=== PATIENT | female | born 1995 | race Hispanic/Latino ===

== ENCOUNTER → 2018-03-25 19:25 | Outpatient (CLI) | payer OTHER, SELFPAY | PROVIDERS: Visit Provider Physician Assistant | DX: N39.0 Urinary tract infection, site not specified (principal) | CPT/HCPCS: 87077; 87086; 87186 ==

== ENCOUNTER 2020-01-12 14:49 | Emergency (ER) | payer OTHER, SELFPAY ==
[2020-01-12 14:53] VITALS: BP 130/74; PULSE 62; RESP 16; TEMP 36.1; O2SAT 99; BMI 35.5
[2020-01-12 17:42] VITALS: BP 121/69
[2020-01-12 17:43] VITALS: PULSE 64; O2SAT 99
[2020-01-12 18:00] VITALS: BP 116/75; PULSE 64; O2SAT 99
--- NOTE | 2020-01-12 18:21 | ED.CHESTPAIN ---
HPI - Chest Pain <CANDACE Tejada - Last Filed: 01/12/20 22:43> General Chief Complaint: Chest Pain Stated Complaint: sent for CT Time Seen by Provider: 01/12/20 18:03 Source: patient Mode of arrival: Ambulatory Limitations: no limitations History of Present Illness HPI narrative: This is a 24 year female, nonsmoker, who is currently is under care of Dr. Wallace (wind development director) for bradycardia with short of breath during , presents to ED with central chest pain with with breathing which started last night at 10 pm with short of breath. She also had an episode of near-syncope 4 days ago. Patient reports pain is constant without radiation. Patient reports pain feels improved when she sits up and leaning forward. She reports pain is locating deep inside and not reproducible. She does carry her 4-month-old daughter frequently. Patient had sudden onset of lightheadedness and near-syncope 4 days ago when she was about to eat. She became anxious and hyperventilated with tingling in her arms and face. She was checked out by EMS at home but was not transported to hospital at that time with normal vital signs and heart rhythm. Patient is currently wearing heart monitor but not during near-syncope. Patient called Dr. Wallace and seen at the office and was recommended to go to ED for lab test and CT test for her symptoms. Patient denies fever, chills, nausea or vomiting, recent URI symptoms. Patient has echocardiogram scheduled on 01/21/20 and had EKG done today at the office. Patient 4 month and she had phlebitis from IV site 3 weeks after she delivered and was noted at that time she had heart rate in 40s with short of breath. Related Data Allergies Allergy/AdvReac Type Severity Reaction Status Date / Time ibuprofen [From Advil] Allergy Severe thraot Verified 03/25/18 19:22 swelling and red lines on chin Review of Systems <CANDACE Tejada - Last Filed: 01/12/20 22:43> Review of Systems Narrative: General: Denies fever, chills, fatigue, malaise, sweats. HEENT: Denies sinus pain, ear pain, sore throat, difficulty swallowing, dizziness. Respiratory: See HPI Cardiovascular: See HPI Gastrointestinal: Denies nausea, vomiting, abdominal pain, diarrhea, constipation, melena. : Denies dysuria, frequency, incontinence, hematuria, urinary retention. Musculoskeletal: Denies weakness, joint pain or bony pain. Skin: Denies rash, skin lesions, or other. Neurologic: Denies weakness, headache, numbness, change in speech, confusion, seizures, incoordination. Psychiatric: No concerning psychosocial issues. 12-point review of systems is negative except for those stated above. Patient History <CANDACE Tejada - Last Filed: 01/12/20 22:43> Medical History Bradycardia (Acute) Phlebitis (Acute) Social History Smoking Status: Never smoker Smoking Status: Never smoker alcohol intake frequency: 0-2 drinks per day Substance Use Type: does not use Exam <CANDACE Tejada - Last Filed: 01/12/20 22:43> Narrative Exam Narrative: GEN: Alert, oriented x 3, well appearing and nourished, and in no acute distress. Head: Normal cephalic, atraumatic. No scalp or temporal tenderness, palpable mass or rash. EYES: Pupils are equal, round, and reactive to light and accommodation. Extraocular muscles are intact bilaterally. There is no subconjunctival hemorrhage, exudate and sclera non-icteric. ENT: Hearing grossly intact. Airway patent. Neck: Trachea in midline. No JVD, non-tender without lymphadenopathy. No masses or thyroid megaly. Supple, non-tender and no meningeal signs. CARDIAC: Normal regular rate and rhythm without murmurs, gallops, or rubs. No chest wall tenderness. No peripheral edema, cyanosis or pallor. Capillary refill is less than 2 seconds. RESPIRATORY: Lungs are clear to auscultate bilaterally. No cough, wheezes, rales, or rhonchi. No stridor, respiratory distress, increase work of breathing, or accessary muscle used. ABD: Abdomen soft, nontender and non-distended. No guarding or rebound tenderness to palpate. Bowel sounds are normal in all 4 quadrants. There is no palpable masses or organomegaly. EXT: Full painless ROM of all extremities with no loss of sensation, strength, effusion or edema. SKIN: Warm, dry, normal color for patient. No erythema, lesions or rash over visible areas. BACK: Nontender without deformity or crepitance. No flank tenderness. NEUROLOGICAL: Alert and oriented to place, time and person. Sensation and motor function intact bilaterally. No facial droops, dysphasia. PSYCHIATRIC: Good judgement and reason, without hallucinations, abnormal affect or abnormal behaviors during the examination. Patient is not suicidal. Initial Vital Signs Initial Vital Signs: Vital Signs Temperature 97.0 F L 01/12/20 14:53 Pulse Rate 62 01/12/20 14:53 Respiratory Rate 16 01/12/20 14:53 Blood Pressure 130/74 01/12/20 14:53 Pulse Oximetry 99 01/12/20 14:53 <Marcus Wheeler DO - Last Filed: 01/13/20 01:18> Initial Vital Signs Initial Vital Signs: Vital Signs Temperature 97.0 F L 01/12/20 14:53 Pulse Rate 62 01/12/20 14:53 Respiratory Rate 16 01/12/20 14:53 Blood Pressure 130/74 01/12/20 14:53 Pulse Oximetry 99 01/12/20 14:53 Scores <CANDACE Tejada - Last Filed: 01/12/20 22:43> GCS Vazquez coma scale eye opening: Spontaneous [place] coma scale verbal response: Orientated [place] coma scale motor response: Obey commands [place] coma scale total score: 15 HEART Score Heart Score history: Slightly Suspicious Heart Score EKG: Normal Heart Score Age: < 45 years old Heart Score risk factors: 1-2 risk factors Heart Score troponin: < or = to normal limit Heart Score Total: 1 Wells' Criteria for PE Clinical signs and symptoms of DVT: No PE is #1 Dx or equally likely: Yes Heart rate > 100: No Immobilization at least 3 days or surg in previous 4 weeks: No History of PE or DVT: No Hemoptysis: No Malignancy w/Treatment within 6 months or palliative: No Wells' PE Score total: 3 Course <CANDACE Tejada - Last Filed: 01/12/20 22:43> Orders Ordered: ED Orders 01/12/20 18:20 XR chest 1V Stat EKG-12 Lead Stat 01/12/20 18:30 Complete Blood Count AUTO DIFF Stat Comprehensive Metabolic Panel Stat D Dimer Stat Lipase Stat NT-proBNP (BNP-Adult 18+) Stat Partial Thromboplastin Time Stat Prothrombin Time INR Stat Troponin & CK Cardiac Panel Stat 01/12/20 19:34 CT angio chest PE protocol Stat Discontinued Medications Acetaminophen (Tylenol) 650 mg PO NOW ONE Stop: 01/12/20 20:16 Last Admin: 01/12/20 20:21 Dose: 650 mg Documented by: OBI Aspirin (Aspirin Chew) 324 mg PO NOW ONE Stop: 01/12/20 18:20 Last Admin: 01/12/20 18:38 Dose: 324 mg Documented by: OBI Ketorolac Tromethamine (Toradol) 15 mg IV NOW ONE Stop: 01/12/20 20:16 Last Admin: 01/12/20 20:21 Dose: 15 mg Documented by: OBI Vital Signs Vital signs: Vital Signs - 8 hr 01/12/20 17:42 01/12/20 17:43 01/12/20 18:00 Pulse Rate 64 64 Blood Pressure 121/69 116/75 Pulse Oximetry 99 99 01/12/20 20:31 Pulse Rate 63 Blood Pressure 118/80 Pulse Oximetry 97 <Marcus Wheeler, - Last Filed: 01/13/20 01:18> Orders Ordered: ED Orders 01/12/20 18:20 XR chest 1V Stat EKG-12 Lead Stat 01/12/20 18:30 Complete Blood Count AUTO DIFF Stat Comprehensive Metabolic Panel Stat D Dimer Stat Lipase Stat NT-proBNP (BNP-Adult 18+) Stat Partial Thromboplastin Time Stat Prothrombin Time INR Stat Troponin & CK Cardiac Panel Stat 01/12/20 19:34 CT angio chest PE protocol Stat Discontinued Medications Acetaminophen (Tylenol) 650 mg PO NOW ONE Stop: 01/12/20 20:16 Last Admin: 01/12/20 20:21 Dose: 650 mg Documented by: OBI Aspirin (Aspirin Chew) 324 mg PO NOW ONE Stop: 01/12/20 18:20 Last Admin: 01/12/20 18:38 Dose: 324 mg Documented by: OBI Ketorolac Tromethamine (Toradol) 15 mg IV NOW ONE Stop: 01/12/20 20:16 Last Admin: 01/12/20 20:21 Dose: 15 mg Documented by: OBI Vital Signs Vital signs: Vital Signs - 8 hr 01/12/20 17:42 01/12/20 17:43 01/12/20 18:00 Pulse Rate 64 64 Blood Pressure 121/69 116/75 Pulse Oximetry 99 99 01/12/20 20:31 Pulse Rate 63 Blood Pressure 118/80 Pulse Oximetry 97 MDM - Chest Pain <Siva Sally [employer]PER[employer] - Last Filed: 01/12/20 22:43> Differential Diagnosis Differential diagnosis: Likely pneumothorax, atypical chest pain, st elevation myocardial infarction, costochondritis and other (PE, pericarditis, pleural effusion) Medical Records Data Attestation: I reviewed the patient's medical records. Lab Data Attestation: I reviewed the patient's lab results. Result diagrams: 01/12/20 18:30 01/12/20 18:30 Labs: Lab Results 01/12/20 01/12/20 01/12/20 Range/Units 18:30 18:30 18:30 WBC 8.5 (4.5-11.0) X10^3/uL RBC 5.10 (4.0-5.2) X10^6/uL Hgb 14.4 (12.0-16.0) g/dL Hct 42.6 (36-46) % MCV 83.6 (80-100) fL MCH 28.3 (26-34) PG MCHC 33.8 (30-36) % RDW 13.4 (11.6-14.8) % Plt Count 265 (150-400) X10^3/uL Neut % (Auto) 63.0 (50-75) % Lymph % (Auto) 30.3 (25-40) % [place] % (Auto) 4.8 (3-14) % Eos % (Auto) 1.5 L (2-4) % Baso % (Auto) 0.4 (0-2) % Neut # (Auto) 5300 (9004-6506) /uL Lymph # (Auto) 2600 (5560-8634) /uL [place] # (Auto) 400 (0-900) /uL Eos # (Auto) 100 (0-450) /uL Baso # (Auto) 0 (0-100) /uL PT 10.8 (10.1-12.7) SECONDS INR 0.9 (0.9-1.3) APTT 36 (26.4-36.2) SECONDS D-Dimer < 200 (<230) ng/mL Sodium (137-145) mmol/L Potassium (3.4-5.1) mmol/L Chloride (98-107) mmol/L Carbon Dioxide (22-32) mmol/L BUN (7-17) mg/dL Creatinine (0.52-1.04) mg/dL Estimated GFR (>60) mL/min BUN/Creatinine Ratio (6-22) Glucose (70-100) mg/dL Calcium (8.4-10.2) mg/dL Total Bilirubin (0.2-1.3) mg/dL AST (14-36) IU/L ALT (<35) IU/L Alkaline Phosphatase (38-126) U/L Total Creatine Kinase (30-135) U/L CK-MB (CK-2) CK-MB (CK-2) Rel Index Troponin I (0.01-0.034) ng/mL NT-Pro-B Natriuret Pep 21 (<125) pg/mL Total Protein (6.3-8.2) g/dL Albumin (3.5-5.0) g/dL Globulin (1.7-4.1) g/dL Albumin/Globulin Ratio (1.0-2.8) Lipase (23-300) U/L 01/12/20 Range/Units 18:30 WBC (4.5-11.0) X10^3/uL RBC (4.0-5.2) X10^6/uL Hgb (12.0-16.0) g/dL Hct (36-46) % MCV (80-100) fL MCH (26-34) PG MCHC (30-36) % RDW (11.6-14.8) % Plt Count (150-400) X10^3/uL Neut % (Auto) (50-75) % Lymph % (Auto) (25-40) % [place] % (Auto) (3-14) % Eos % (Auto) (2-4) % Baso % (Auto) (0-2) % Neut # (Auto) (4343-5596) /uL Lymph # (Auto) (2226-9175) /uL [place] # (Auto) (0-900) /uL Eos # (Auto) (0-450) /uL Baso # (Auto) (0-100) /uL PT (10.1-12.7) SECONDS INR (0.9-1.3) APTT (26.4-36.2) SECONDS D-Dimer (<230) ng/mL Sodium 138 (137-145) mmol/L Potassium 3.9 (3.4-5.1) mmol/L Chloride 103 (98-107) mmol/L Carbon Dioxide 26 (22-32) mmol/L BUN 13 (7-17) mg/dL Creatinine 0.81 (0.52-1.04) mg/dL Estimated GFR > 60.0 (>60) mL/min BUN/Creatinine Ratio 16.0 (6-22) Glucose 90 (70-100) mg/dL Calcium 10.4 H (8.4-10.2) mg/dL Total Bilirubin 0.4 (0.2-1.3) mg/dL AST 22 (14-36) IU/L ALT 13 (<35) IU/L Alkaline Phosphatase 75 (38-126) U/L Total Creatine Kinase 49 (30-135) U/L CK-MB (CK-2) TNP CK-MB (CK-2) Rel Index TNP Troponin I < 0.012 (0.01-0.034) ng/mL NT-Pro-B Natriuret Pep (<125) pg/mL Total Protein 8.4 H (6.3-8.2) g/dL Albumin 5.0 (3.5-5.0) g/dL Globulin 3.4 (1.7-4.1) g/dL Albumin/Globulin Ratio 1.5 (1.0-2.8) Lipase 62 (23-300) U/L Point of Care Testing Test Results Negative Urine Dip Bedside Urine Glucose Negative Bedside Urine Bilirubin - Negative Bedside Urine Ketone ++ 40 Urine Specific [place] 1.025 Bedside Urine Occult Blood - Negative Bedside Urine pH 6.0 Bedside Urine Protein - Negative Bedside Urine Urobilinogen - Negative Bedside Urine Nitrite - Negative Bedside Urine Leukocytes - Negative Esterase Imaging Data CT-Chest PE : Radiologist's Impression: [address] [address] [address] Scan Report Signed Patient: Janet Gilbert [facility]#: [id number] : 1995Acct:[id number] Age/Sex: 24 / FDate of Service: 01/12/20 Loc: ED Accession Number: [id number] Procedure: CT angio chest PE protocol Ordering Provider: Siva ZavalaP PROCEDURE: CT ANGIO CHEST PE PROTOCOL INDICATIONS: Pleuritic chest pain, near syncope TECHNIQUE: After the administration of intravenous contrast, 2 mm thick sections acquired from the pulmonary apices to the posterior costophrenic angles. 3-dimensional maximum intensity projection (MIP) coronal and sagittal reformats were then acquired through the thorax. For radiation dose reduction, the following was used: automated exposure control, adjustment of mA and/or kV according to patient size. COMPARISON: None. FINDINGS: Image quality: Excellent. Pulmonary arteries: Pulmonary arteries are normal in size, and demonstrate no intraluminal filling defects to suggest central pulmonary embolism. Lungs and pleura: Lungs are clear. No pleural effusions or pneumothorax. Central and peripheral airways are patent. Mediastinum: Heart size is normal, without pericardial effusion. No mediastinal or hilar adenopathy. Thoracic aorta is normal in caliber and enhancement. Esophagus is normal in caliber, without hiatal hernia. Bones and chest wall: No suspicious bony lesions. Ribs and thoracic spine appear intact throughout. Thyroid gland is unremarkable . No axillary or supraclavicular adenopathy. Abdomen: Visualized upper abdominal solid organs appear normal in the early arterial phase of enhancement. IMPRESSION: 1. No acute pulmonary embolus. Chest x-ray: Radiologist's Impression: [place] [address] XRay Report Signed Patient: Janet Gilbert [facility]#: [id number] : 1995Acct:[id number] Age/Sex: 24 / FDate of Service: 01/12/20 Loc: ED Accession Number: [id number] Procedure: XR chest 1V Ordering Provider: Siva Zavala [facility] PROCEDURE: XR CHEST 1V INDICATIONS: chest pain TECHNIQUE: One view of the chest was acquired. COMPARISON: None. FINDINGS: Surgical changes and devices: None. Lungs and pleura: Lungs are clear. No pleural effusions or pneumothorax. Mediastinum: Mediastinal contours appear normal. Heart size is normal. Bones and chest wall: No suspicious bony lesions. Overlying soft tissues appear unremarkable. IMPRESSION: No acute cardiopulmonary findings. Dictated by: Claudia Marx M.D. on 01/12/2020 at 19:04 Approved by: Claudia Marx M.D. on 01/12/2020 at 19:05 ECG Data Attestation: I personally reviewed and interpreted this ECG as follows: Prior ECG tracings: not available for review Interpretation: Sinus rhythm rate at 68 Normal [place]. [place] interval 152, QRS duration 99, QT/QTC 392/[address] changes MDM Narrative Medical decision making narrative: This is a 24-year-old female presents to ED with central non reproducible pleuritic chest discomfort since last night at 10:00 p.m. which has been pretty constant with short of breath. Patient is currently being followed by Dr. Wallace, wind development director, with bradycardia and short of breath. Patient reports she had near syncope episode 4 days ago. EKG was sinus rhythm rate at [address] changes. Physical exam is unremarkable. Lab tests are assuring including troponin and D-dimer (<200). Since patient has constant pain near 24 hrs, no additional troponin has been followed up after the initial negative result. Urine test was negative with no indication of UTI. Wells criteria for pulmonary embolism was 3 (intermediate probability). Chest x-ray was no acute findings with normal heart size. Given the patient symptoms with easing up the pain when she sits up and leaning forward considered pericarditis in addition to pulmonary embolism and CT chest test has been ordered. CT test does not show acute pulmonary embolism or pericardial effusion. She was medicated with Tylenol and IV Toradol for atypical chest pain and not likely from cardiac, PE, or pericarditis. Since she carries her 4 month old infant frequently and it may due to costochondritis. Patient advised to use [id number] Tylenol and Motrin and to follow-up with Dr. Wallace as scheduled with further testing. Return precautions were discussed with patient and patient verbalized understanding and agreement with treatment plan. <Marcus Wheeler DO - Last Filed: 01/13/20 01:18> Lab Data Labs: Lab Results 01/12/20 01/12/20 01/12/20 Range/Units 18:30 18:30 18:30 WBC 8.5 (4.5-11.0) X10^3/uL RBC 5.10 (4.0-5.2) X10^6/uL Hgb 14.4 (12.0-16.0) g/dL Hct 42.6 (36-46) % MCV 83.6 (80-100) fL MCH 28.3 (26-34) PG MCHC 33.8 (30-36) % RDW 13.4 (11.6-14.8) % Plt Count 265 (150-400) X10^3/uL Neut % (Auto) 63.0 (50-75) % Lymph % (Auto) 30.3 (25-40) % [place] % (Auto) 4.8 (3-14) % Eos % (Auto) 1.5 L (2-4) % Baso % (Auto) 0.4 (0-2) % Neut # (Auto) 5300 (4785-9520) /uL Lymph # (Auto) 2600 (4651-3162) /uL [place] # (Auto) 400 (0-900) /uL Eos # (Auto) 100 (0-450) /uL Baso # (Auto) 0 (0-100) /uL PT 10.8 (10.1-12.7) SECONDS INR 0.9 (0.9-1.3) APTT 36 (26.4-36.2) SECONDS D-Dimer < 200 (<230) ng/mL Sodium (137-145) mmol/L Potassium (3.4-5.1) mmol/L Chloride (98-107) mmol/L Carbon Dioxide (22-32) mmol/L BUN (7-17) mg/dL Creatinine (0.52-1.04) mg/dL Estimated GFR (>60) mL/min BUN/Creatinine Ratio (6-22) Glucose (70-100) mg/dL Calcium (8.4-10.2) mg/dL Total Bilirubin (0.2-1.3) mg/dL AST (14-36) IU/L ALT (<35) IU/L Alkaline Phosphatase (38-126) U/L Total Creatine Kinase (30-135) U/L CK-MB (CK-2) CK-MB (CK-2) Rel Index Troponin I (0.01-0.034) ng/mL NT-Pro-B Natriuret Pep 21 (<125) pg/mL Total Protein (6.3-8.2) g/dL Albumin (3.5-5.0) g/dL Globulin (1.7-4.1) g/dL Albumin/Globulin Ratio (1.0-2.8) Lipase (23-300) U/L 01/12/20 Range/Units 18:30 WBC (4.5-11.0) X10^3/uL RBC (4.0-5.2) X10^6/uL Hgb (12.0-16.0) g/dL Hct (36-46) % MCV (80-100) fL MCH (26-34) PG MCHC (30-36) % RDW (11.6-14.8) % Plt Count (150-400) X10^3/uL Neut % (Auto) (50-75) % Lymph % (Auto) (25-40) % [place] % (Auto) (3-14) % Eos % (Auto) (2-4) % Baso % (Auto) (0-2) % Neut # (Auto) (0761-9022) /uL Lymph # (Auto) (5665-2757) /uL [place] # (Auto) (0-900) /uL Eos # (Auto) (0-450) /uL Baso # (Auto) (0-100) /uL PT (10.1-12.7) SECONDS INR (0.9-1.3) APTT (26.4-36.2) SECONDS D-Dimer (<230) ng/mL Sodium 138 (137-145) mmol/L Potassium 3.9 (3.4-5.1) mmol/L Chloride 103 (98-107) mmol/L Carbon Dioxide 26 (22-32) mmol/L BUN 13 (7-17) mg/dL Creatinine 0.81 (0.52-1.04) mg/dL Estimated GFR > 60.0 (>60) mL/min BUN/Creatinine Ratio 16.0 (6-22) Glucose 90 (70-100) mg/dL Calcium 10.4 H (8.4-10.2) mg/dL Total Bilirubin 0.4 (0.2-1.3) mg/dL AST 22 (14-36) IU/L ALT 13 (<35) IU/L Alkaline Phosphatase 75 (38-126) U/L Total Creatine Kinase 49 (30-135) U/L CK-MB (CK-2) TNP CK-MB (CK-2) Rel Index TNP Troponin I < 0.012 (0.01-0.034) ng/mL NT-Pro-B Natriuret Pep (<125) pg/mL Total Protein 8.4 H (6.3-8.2) g/dL Albumin 5.0 (3.5-5.0) g/dL Globulin 3.4 (1.7-4.1) g/dL Albumin/Globulin Ratio 1.5 (1.0-2.8) Lipase 62 (23-300) U/L Point of Care Testing Test Results Negative Urine Dip Bedside Urine Glucose Negative Bedside Urine Bilirubin - Negative Bedside Urine Ketone ++ 40 Urine Specific [place] 1.025 Bedside Urine Occult Blood - Negative Bedside Urine pH 6.0 Bedside Urine Protein - Negative Bedside Urine Urobilinogen - Negative Bedside Urine Nitrite - Negative Bedside Urine Leukocytes - Negative Esterase Discharge Plan Departure Patient Disposition: Home Clinical Impression: Atypical chest pain Discharge Date/Time: 01/12/20 20:32 Instructions: DI for Atypical Chest Pain Activity Restrictions/Additional Instructions: You have been diagnosed with [atypical chest pain. Labs are assuring. Chest x-ray without acute findings. Head CT shows no evidence of pulmonary embolism or pericardial effusion]. What to do: *Take your medications as directed. You can take [id number] Tylenol and or Motrin as needed for discomfort. Tylenol 650-1000 mg up to 3 to 4 times a day as needed for pain. Ibuprofen 400 mg up to 3 to 4 times a day as needed for pain with food to decrease GI irritation. *Follow up with your primary care provider and Dr. Wallace in 2-3 days, call for an appointment. Let them know you were seen in the ED and that we asked you to be seen in follow up. *Return to ED if you have any new, worsening, or concerning symptoms, such as [worsening pain/breathing difficulty, feeling like faint, nausea, vomiting, cold sweats, fever or any acute concerns]. Referrals: Claude Wallace MD [Physician] - Ethel Narayan PA-C [Non-Staff] - <Marcus Wheeler DO - Last Filed: 01/13/20 01:18> Sign Out Provider Sign Out Attestation: I was immediately available in the department for consultation. This documentation has been reviewed and I agree with assessment and plan. Supervised by Marcus Wheeler, DO
[2020-01-12] MEDS: ASPIRIN 81 MG CHEW TAB 324 MG PO (18:38)
[2020-01-12 18:39] LABS: Add Manual Diff / Slide Review NO; Basophils Absolute Auto 0 /uL (0-100); Basophils Percent Auto 0.4 % (0-2); Eosinophils Absolute Auto 100 /uL (0-450); Eosinophils Percent Auto 1.5 % (2-4); Hematocrit 42.6 % (36-46); Hemoglobin 14.4 g/dL (12.0-16.0); Lymphocytes Absolute Auto 2600 /uL (1100-4500); Lymphocytes Percent Auto 30.3 % (25-40); Mean Corpuscular HGB Conc 33.8 % (30-36); Mean Corpuscular Hemoglobin 28.3 PG (26-34); Mean Corpuscular Volume 83.6 fL (80-100); Monocytes Absolute Auto 400 /uL (0-900); Monocytes Percent Auto 4.8 % (3-14); Neutrophils Absolute Auto 5300 /uL (1500-7000); Platelet Count 265 X10^3/uL (150-400); Red Cell Distribution Width 13.4 % (11.6-14.8); White Blood Cell Count 8.5 X10^3/uL (4.5-11.0)
[2020-01-12 18:45] LABS: INR 0.9 (0.9-1.3); Prothrombin Time 10.8 SECONDS (10.1-12.7)
[2020-01-12 18:48] LABS: PTT Partial Thromboplastin Tim 36 SECONDS (26.4-36.2)
[2020-01-12 18:49] LABS: D Dimer < 200 ng/mL (<230)
[2020-01-12 18:51] LABS: Alanine Aminotransferase 13 IU/L (<35); Albumin Globulin Ratio 1.5 (1.0-2.8); Alkaline Phosphatase 75 U/L (38-126); Aspartate Aminotransferase 22 IU/L (14-36); Bilirubin Total 0.4 mg/dL (0.2-1.3); Blood Urea Nitrogen 13 mg/dL (7-17); Calcium 10.4 mg/dL (8.4-10.2); Carbon Dioxide 26 mmol/L (22-32); Chloride 103 mmol/L (98-107); Creatine Kinase 49 U/L (30-135); Estimated Glomerular Filt Rate > 60.0 mL/min (>60); Globulin 3.4 g/dL (1.7-4.1); Glucose 90 mg/dL (70-100); HEMOLYSIS < 15 (0-50); Lipase 62 U/L (23-300); Potassium 3.9 mmol/L (3.4-5.1); Sodium 138 mmol/L (137-145); Total Protein 8.4 g/dL (6.3-8.2)
[2020-01-12 19:00] LABS: NT-proBNP (BNP-Adult 18+) 21 pg/mL (<125)
[2020-01-12 19:03] LABS: Troponin I < 0.012 ng/mL (0.01-0.034)
--- NOTE | 2020-01-12 19:34 | DI.CT.S_ITS ---
PROCEDURE: CT ANGIO CHEST PE PROTOCOL INDICATIONS: Pleuritic chest pain, near syncope TECHNIQUE: After the administration of intravenous contrast, 2 mm thick sections acquired from the pulmonary apices to the posterior costophrenic angles. 3-dimensional maximum intensity projection (MIP) coronal and sagittal reformats were then acquired through the thorax. For radiation dose reduction, the following was used: automated exposure control, adjustment of mA and/or kV according to patient size. COMPARISON: None. FINDINGS: Image quality: Excellent. Pulmonary arteries: Pulmonary arteries are normal in size, and demonstrate no intraluminal filling defects to suggest central pulmonary embolism. Lungs and pleura: Lungs are clear. No pleural effusions or pneumothorax. Central and peripheral airways are patent. Mediastinum: Heart size is normal, without pericardial effusion. No mediastinal or hilar adenopathy. Thoracic aorta is normal in caliber and enhancement. Esophagus is normal in caliber, without hiatal hernia. Bones and chest wall: No suspicious bony lesions. Ribs and thoracic spine appear intact throughout. Thyroid gland is unremarkable . No axillary or supraclavicular adenopathy. Abdomen: Visualized upper abdominal solid organs appear normal in the early arterial phase of enhancement. IMPRESSION: 1. No acute pulmonary embolus. Dictated by: Claudia Marx M.D. on 01/12/2020 at 19:59 Approved by: Claudia Marx M.D. on 01/12/2020 at 20:01
[2020-01-12] MEDS: KETOROLAC 60 MG/2 ML VIAL 15 MG IV (20:21)
[2020-01-12] MEDS: ACETAMINOPHEN 325 MG TABLET 650 MG PO (20:21)
[2020-01-12 20:31] VITALS: BP 118/80; PULSE 63; O2SAT 97
== END 2020-01-12 20:32 | disposition home or self-care (01) ==
PROVIDERS: Emergency Provider Nurse Practitioner Family; Referring Provider Physician Assistant
DX: R07.89 Other chest pain (principal); R06.02 Shortness of breath
CPT/HCPCS: 36415; 71045; 71275; 80053; 81003; 81025; 82550; 83690; 83880; 84484; 85025; 85379; 85610; 85730; 93005; 96374; 99284; J1885; Q9967